=== PATIENT | male | born 1950 | race Caucasian/White ===

== ENCOUNTER → 2016-12-01 | Outpatient (CLI) | payer BC ==
[~2016-12-01] MED LIST: IBUPROFEN800 MG PO; LOVENOX SY40 MG/0.4 SQ; METOPROLOL TART25 MG PO; NORCO 5-325 TA1 EACH PO; NORCO 7.5-3251 EACH PO; OMEPRAZOLE20 M1 PO; PERCOCET 7.5-31 EACH PO; PRAVACHOL80 MG PO; PRAVASTATIN SOD80 MG PO
== END ==
LOC: ECHO 10:36
DX: I47.2 Ventricular tachycardia (principal); I11.9 Hypertensive heart disease without heart failure; Z95.0 Presence of cardiac pacemaker
CPT/HCPCS: ECHO; 93306

== ENCOUNTER → 2020-07-31 | Outpatient (CLI) | payer MEDICARE, OTHER ==
[~2020-07-31] MED LIST changes: +ALEVE220 MG PO; +ATORVASTATIN CA80 MG PO; +BETAMETHASONE D50 GM TP; +DILTIAZEM ER180 M1 PO; +ELIQUIS5 MG PO; +LEVAQUIN500 MG PO; -LOVENOX SY40 MG/0.4 SQ; +MEN'S DAILY FO1 EACH PO; -PERCOCET 7.5-31 EACH PO; +SOTALOL80 MG PO; +TYLENOL W/CODEIN1 E1 PO
[2020-07-31 09:34] LABS: HEMOGLOBIN 14.6 gm/dl (14.0-17.5); RED BLOOD COUNT 4.85 M/UL (4.20-5.50); WHITE BLOOD COUNT 5.9 K/UL (4.5-11.0)
[2020-07-31 10:19] LABS: BUN/CREATININE RATIO 19 (0-10)
== END ==
LOC: LAB 08:59
PROVIDERS: Internal Medicine
DX: N40.0 Benign prostatic hyperplasia without lower urinary tract symptoms (principal); I10 Essential (primary) hypertension
CPT/HCPCS: 36415; 80048; 80061; 80076; 84153; 84443; 85025

== ENCOUNTER → 2020-10-09 | Outpatient (CLI) | payer MEDICARE ==
[2020-10-09 08:02] LABS: HEMOGLOBIN 14.7 gm/dl (14.0-17.5); RED BLOOD COUNT 4.93 M/UL (4.20-5.50); WHITE BLOOD COUNT 8.6 K/UL (4.5-11.0)
== END ==
LOC: CATH 07:22
PROVIDERS: Internal Medicine Cardiovascular Disease
DX: I48.0 Paroxysmal atrial fibrillation (principal); I10 Essential (primary) hypertension; I47.2 Ventricular tachycardia; E78.5 Hyperlipidemia, unspecified; K21.9 Gastro-esophageal reflux disease without esophagitis; H54.8 Legal blindness, as defined in USA; Z79.899 Other long term (current) drug therapy; Z95.810 Presence of automatic (implantable) cardiac defibrillator
CPT/HCPCS: 80048; 85027; 92960; 93005; J1200; J2250; J2310; J3010

== ENCOUNTER 2020-10-23 14:37 | Emergency (ER) | payer MEDICARE | END 2020-10-23 18:01 | disposition home or self-care (01) | LOC: ER1 14:37 | DX: Z23 Encounter for immunization (principal); U07.1 COVID-19; I10 Essential (primary) hypertension; Z91.013 Allergy to seafood | CPT/HCPCS: 99281; M0243 ==

== ENCOUNTER → 2021-01-02 | Outpatient (CLI) | payer MEDICARE | LOC: HEART 5 11:10 | DX: U07.1 COVID-19 (principal); R06.02 Shortness of breath; I08.1 Rheumatic disorders of both mitral and tricuspid valves | CPT/HCPCS: 93306 ==

== ENCOUNTER → 2021-01-24 | Outpatient (CLI) | payer MEDICARE | LOC: HEART 5 09:02 | DX: R06.02 Shortness of breath (principal); Z79.899 Other long term (current) drug therapy | CPT/HCPCS: 94060; 94729 ==